=== PATIENT | female | born 2000 | race Caucasian/White ===

== ENCOUNTER 2019-04-12 12:40 | Emergency (ER) | payer OTHER ==
[2019-04-12 12:53] VITALS: BP 119/84; PULSE 91; RESP 18; TEMP 97.7
--- NOTE | 2019-04-12 13:40 | ED ---
General Adult HPI - General Chief complaint: Recheck/Abnormal Lab/Rx Stated complaint: swollen eye, blurry vision Time Seen by Provider: 04/12/19 13:00 Source: patient, RN notes reviewed Mode of arrival: ambulatory Limitations: no limitations - History of Present Illness Initial comments: This is a 18-year-old female with a benign past medical history who states she's been on Accutane for acne for over a week she thought she was having a reaction to that she has some pain and swelling behind her left eye with some dizziness. She has had some rhinorrhea no overt fevers chills or sweats. He denies any earaches sore throat cough or phlegm production at this time. She again thought was a reaction to her Accutane. Is no other complaints no other modifying factors at this time - Related Data Previous Rx's Medication Instructions Recorded Bacitracin/Polymyx Ophth Oint 1 applic LEFT EYE QID 10 Days #3.5 04/12/19 [Polysporin] tube Allergies Allergy/AdvReac Type Severity Reaction Status Date / Time No Known Allergies Allergy Verified 04/12/19 12:52 Review of Systems ROS Statement: Those systems with pertinent positive or pertinent negative responses have been documented in the HPI. ROS Other: All systems not noted in ROS Statement are negative. Past Medical History Additional Past Medical History / Comment(s): acne History of Any Multi-Drug Resistant Organisms: None Reported Past Surgical History: No Surgical Hx Reported Past Psychological History: Anxiety Smoking Status: Never smoker Past Alcohol Use History: None Reported Past Drug Use History: None Reported General Exam - General Exam Comments Initial Comments: This is a well-developed well-nourished awake alert oriented 3 female Limitations: no limitations General appearance: alert, in no apparent distress Head exam: Present: atraumatic, normocephalic, normal inspection Eye exam: Present: PERRL, EOMI, other (Some minimal erythema and slight tenderness palpation of the left upper eyelid no drainage seen no overt mass exam consistent with blepharitis). Absent: conjunctival injection, periorbital swelling, periorbital tenderness ENT exam: Present: normal oropharynx, mucous membranes moist, TM's normal bilaterally, other (Muggy mucosa) Neck exam: Present: full ROM, lymphadenopathy, other (Some mild tender lymphadenopathy to the left inferior mandibular chain for range of motion no stridor JVD or bruits) Respiratory exam: Present: normal lung sounds bilaterally. Absent: respiratory distress, wheezes, rales, rhonchi, stridor Cardiovascular Exam: Present: regular rate, normal rhythm, normal heart sounds. Absent: systolic murmur, diastolic murmur, rubs, gallop, clicks Back exam: Present: full ROM Neurological exam: Present: alert, oriented X3, CN II-XII intact Psychiatric exam: Present: normal affect, normal mood Skin exam: Present: warm, dry, intact, normal color. Absent: rash Course Vital Signs 04/12/19 12:49 Temperature 97.7 F Pulse Rate 91 Respiratory 18 Rate Blood Pressure 119/84 O2 Sat by Pulse 99 Oximetry Medical Decision Making - Medical Decision Making I did discuss the findings with the patient the presentation is consistent with blepharitis not evidence of ALLERGIC reaction to the medication patient sign. She will be placed on appropriate eyedrops we did discuss warm compresses Tylenol or Advil for pain follow-up with her doctor return when necessary Disposition Clinical Impression: Blepharitis, left eye Disposition: HOME SELF-CARE Condition: Good Instructions (If sedation given, give patient instructions): Blepharitis (ED) Additional Instructions: Warm compresses, eyelid cleansing, antibiotic drops Prescriptions: Bacitracin/Polymyx Ophth Oint [Polysporin] 1 applic LEFT EYE QID 10 Days #3.5 tube Is patient prescribed a controlled substance at d/c from ED?: No Referrals: Renetta Gomez DO [Primary Care Provider] - 1-2 days
== END 2019-04-12 13:59 | disposition home or self-care (01) ==
LOC: EC 12:40
DX: H01.004 Unspecified blepharitis left upper eyelid (principal); R59.0 Localized enlarged lymph nodes; J34.89 Other specified disorders of nose and nasal sinuses; L70.9 Acne, unspecified; Z79.899 Other long term (current) drug therapy
CPT/HCPCS: 99283